=== PATIENT | female | born 1980 | race African-American/Black ===

== ENCOUNTER 2016-05-15 11:02 | Emergency (ER) | payer BC, MEDICAID ==
--- NOTE | 2016-05-15 11:33 | ER Document Report ---
ED General - General Chief Complaint: General Weakness Stated Complaint: HAND/FEET PAIN TRAVEL OUTSIDE OF THE [place] IN LAST 30 DAYS: No - HPI Patient complains to provider of: bilateral hands and feet complaint Notes: Patient states history of hypertension possible borderline diabetes coming in for transient hand pain numbness bilateral foot pain numbness mostly occurs when she wakes up in the morning. Patient states goes away when she starts her day. Patient also states having pain and her buttocks that goes down her leg. Denies any injuriesfevers chills nausea vomiting. Denies changes in medication - Related Data Allergies/Adverse Reactions: No Known Allergies Allergy (Verified 05/15/16 11:17) Past Medical History - Social History Smoking Status: Unknown if Ever Smoked Family History: Reviewed & Not Pertinent Patient has suicidal ideation: No Patient has homicidal ideation: No Renal/ Medical History: Denies: Hx Peritoneal Dialysis - Immunizations Hx Diphtheria, Pertussis, Tetanus Vaccination: Yes - 11/05/13 Review of Systems - Review of Systems Constitutional: No symptoms reported EENT: No symptoms reported Cardiovascular: No symptoms reported Respiratory: No symptoms reported Gastrointestinal: No symptoms reported Genitourinary: No symptoms reported Female Genitourinary: No symptoms reported Musculoskeletal: No symptoms reported Skin: No symptoms reported Hematologic/Lymphatic: No symptoms reported Neurological/Psychological: Numbness Physical Exam - Vital signs Vitals: Temp Pulse Resp BP Pulse Ox 98.4 F 88 16 119/92 H 100 05/15/16 11:19 05/15/16 11:19 05/15/16 11:19 05/15/16 11:19 05/15/16 11:19 Interpretation: Normal - General General appearance: Appears well, Alert - HEENT Head: Normocephalic, Atraumatic Eyes: Normal Pupils: PERRL - Respiratory Respiratory status: No respiratory distress Chest status: Nontender Breath sounds: Normal Chest palpation: Normal - Cardiovascular Rhythm: Regular Heart sounds: Normal auscultation Murmur: No - Abdominal Inspection: Normal Distension: No distension Bowel sounds: Normal Tenderness: Nontender Organomegaly: No organomegaly - Back Back: Normal, Nontender Notes: Palpation of the left gluteus chung in the middle along the piriformis muscle is reproduced patient's pain sensation that goes down her leg. Consistent with sciatica. - Extremities General upper extremity: Normal inspection, Nontender, Normal color, Normal ROM , Normal temperature General lower extremity: Normal inspection, Nontender, Normal color, Normal ROM , Normal temperature, Normal weight bearing. No: Tiara's sign - Neurological Neuro grossly intact: Yes Cognition: Normal Orientation: AAOx4 [place] Coma Scale Eye Opening: Spontaneous [place] Coma Scale Verbal: Oriented [place] Coma Scale Motor: Obeys Commands [place]orge Coma Scale Total: 15 Speech: Normal Cranial nerves: Normal Motor strength normal: LUE, RUE, LLE, RLE Additional motor exam normals: Equal rolled glass crosscutter Sensory: Normal - Psychological Associated symptoms: Normal affect, Normal mood - Skin Skin Temperature: Warm Skin Moisture: Dry Skin Color: Normal Course - Re-evaluation Re-evalutation: 05/15/16 11:33 Patient is on has core thiazide. Will check electrolytes. 05/15/16 13:46 Slight elevation in eosinophils. Explained to the patient she will need to follow-up with her primary care physician for possible testing for autoimmune etiology of her symptoms. Patient also was educated about treatment of sciatica. - Vital Signs Vital signs: Temp Pulse Resp BP Pulse Ox 97.9 F 51 L 18 118/75 100 05/15/16 12:49 05/15/16 12:49 05/15/16 12:49 05/15/16 12:49 05/15/16 12:49 - Laboratory Result Diagrams: 05/15/16 11:35 05/15/16 11:35 Laboratory results interpreted by me: 05/15/16 05/15/16 11:35 11:35 Eosinophils % 6.5 H Chloride 108 H Discharge - Discharge Clinical Impression: Paresthesias Sciatica Qualifiers: Laterality: unspecified laterality Qualified Code(s): M54.30 - Sciatica, unspecified side Condition: Stable Disposition: HOME, SELF-CARE Instructions: Sciatica ([facility]), Numbness or Paresthesia ([facility]), Oral Narcotic Medication ([facility]) Additional Instructions: Your labwork today does not show any electrolyte abnormalities. You do have a slight increase in your eosinophils on your CBC. This may be an indication of possible autoimmune disease. I highly recommend following up with your primary care physician for further testing. At this time do not see any critical etiology for your paresthesias or numbness. Your pain is consistent with sciatica. I would highly recommend looking on the Internet for piriformis muscle stretching exercises to help with your sciatica. He may take the medication prescribed for very severe pain. Tylenol Motrin for her pain. Prescriptions: Tramadol HCl [Ultram 50 mg Tablet] 50 mg PO ASDIR PRN #14 tablet PRN Reason: Forms: Return to Work Referrals: SHAI ANG, [Primary Care Provider] - Follow up as needed
[2016-05-15 12:01] LABS: ABSOLUTE BASOPHILS # (AUTO) 0.1 10^3/uL (0.0-0.2); ABSOLUTE EOSINOPHILS # (AUTO) 0.4 10^3/uL (0.0-0.6); ABSOLUTE LYMPHOCYTES (AUTO) 2.3 10^3/uL (0.5-4.7); ABSOLUTE MONOCYTES (AUTO) 0.5 10^3/uL (0.1-1.4); ABSOLUTE NEUT (AUTO) 2.7 10^3/uL (1.7-8.2); BASOPHILS % (AUTO) 0.9 % (0-2); EOSINOPHILS % (AUTO) 6.5 % (0-6); HEMATOCRIT 41.2 % (36.0-47.0); HEMOGLOBIN 13.7 g/dL (12.0-15.5); HGB HCT DIFFERENCE -0.1; LYMPHOCYTES % (AUTO) 38.5 % (13-45); MEAN CORPUSCULAR HEMOGLOBIN 28.2 pg (27.0-33.4); MEAN CORPUSCULAR HGB CONC 33.3 g/dL (32.0-36.0); MEAN CORPUSCULAR VOLUME 85 fl (80-97); MONOCYTES % (AUTO) 8.5 % (3-13); RED BLOOD COUNT 4.87 10^6/uL (3.72-5.28); RED CELL DISTRIBUTION WIDTH 13.5 % (11.5-14.0); SEGMENTED NEUTROPHILS % (AUTO) 45.6 % (42-78); WHITE BLOOD COUNT 5.9 10^3/uL (4.0-10.5)
[2016-05-15 12:08] LABS: APPEARANCE,URINE CLEAR; BILIRUBIN,URINE NEGATIVE (NEGATIVE); GLUCOSE, URINE NEGATIVE (NEGATIVE); KETONES,URINE NEGATIVE (NEGATIVE); LEUKOCYTE ESTERASE,URINE NEGATIVE (NEGATIVE); NITRITE,URINE NEGATIVE (NEGATIVE); PROTEIN,URINE NEGATIVE (NEGATIVE); URINE SPECIFIC GRAVITY 1.003; UROBILINOGEN,URINE NEGATIVE mg/dL (<2.0)
[2016-05-15 12:10] LABS: ANION GAP 13 (5-19); BLOOD UREA NITROGEN 10 mg/dL (7-20); CALCIUM 9.8 mg/dL (8.4-10.2); CARBON DIOXIDE 24 mmol/L (22-30); CHLORIDE 108 mmol/L (98-107); GLUCOSE 89 mg/dL (75-110); LIPASE 125.2 U/L (23-300); MAGNESIUM 1.9 mg/dL (1.6-2.3); POTASSIUM 4.6 mmol/L (3.6-5.0)
[2016-05-15 12:52] VITALS: BP 118/75
== END 2016-05-15 12:50 | disposition home or self-care (01) ==
LOC: ER 11:02
DX: M54.30 Sciatica, unspecified side (principal); R20.2 Paresthesia of skin; R20.0 Anesthesia of skin; I10 Essential (primary) hypertension; M79.643 Pain in unspecified hand; M79.671 Pain in right foot; M79.672 Pain in left foot; D72.1 Eosinophilia; Z79.899 Other long term (current) drug therapy
CPT/HCPCS: 36415; 80048; 81001; 83036; 83690; 83735; 84702; 85025; 99283

== ENCOUNTER 2016-07-15 13:46 | Emergency (ER) | payer BC ==
--- NOTE | 2016-07-15 14:14 | ER Document Report ---
ED Medical Screen (RME) - General Chief Complaint: Chest Pain Stated Complaint: CHEST PAIN Time Seen by Provider: 07/15/16 14:05 Notes: A 35-year-old female patient complaining of mid sternal chest pain that started yesterday and has been constant. Also feels lightheaded. I have greeted and performed a rapid initial assessment of this patient. A comprehensive ED assessment and evaluation of the patient, analysis of test results and completion of the medical decision making process will be conducted by additional ED providers. TRAVEL OUTSIDE OF THE [place] IN LAST 30 DAYS: No - Related Data Allergies/Adverse Reactions: No Known Allergies Allergy (Verified 07/15/16 13:48) Past Medical History - Social History Chew tobacco use (# tins/day): No Frequency of alcohol use: None Drug Abuse: None - Past Medical History Cardiac Medical History: Reports: Hx Hypertension Renal/ Medical History: Denies: Hx Peritoneal Dialysis GI Medical History: Reports: Hx Gastroesophageal Reflux Disease Surgical Hx: Negative - Immunizations Hx Diphtheria, Pertussis, Tetanus Vaccination: Yes - 11/05/13 Physical Exam - Vital signs Vitals: Temp Pulse Resp BP Pulse Ox 98.1 F 88 16 139/87 H 99 07/15/16 13:48 07/15/16 13:48 07/15/16 13:48 07/15/16 13:48 07/15/16 13:48 Course - Vital Signs Vital signs: Temp Pulse Resp BP Pulse Ox 98.1 F 88 16 139/87 H 99 07/15/16 13:48 07/15/16 13:48 07/15/16 13:48 07/15/16 13:48 07/15/16 13:48
[2016-07-15 14:47] LABS: ABSOLUTE EOSINOPHILS # (AUTO) 0.3 10^3/uL (0.0-0.6); ABSOLUTE LYMPHOCYTES (AUTO) 2.1 10^3/uL (0.5-4.7); ABSOLUTE MONOCYTES (AUTO) 0.7 10^3/uL (0.1-1.4); ABSOLUTE NEUT (AUTO) 5.9 10^3/uL (1.7-8.2); BASOPHILS % (AUTO) 0.5 % (0-2); EOSINOPHILS % (AUTO) 3.6 % (0-6); HEMATOCRIT 43.6 % (36.0-47.0); HEMOGLOBIN 14.7 g/dL (12.0-15.5); HGB HCT DIFFERENCE 0.5; LYMPHOCYTES % (AUTO) 22.8 % (13-45); MEAN CORPUSCULAR HEMOGLOBIN 28.7 pg (27.0-33.4); MEAN CORPUSCULAR HGB CONC 33.7 g/dL (32.0-36.0); MEAN CORPUSCULAR VOLUME 85 fl (80-97); MONOCYTES % (AUTO) 7.4 % (3-13); RED BLOOD COUNT 5.12 10^6/uL (3.72-5.28); SEGMENTED NEUTROPHILS % (AUTO) 65.7 % (42-78)
[2016-07-15 15:15] LABS: ALANINE AMINOTRANSFERASE 27 U/L (9-52); ALBUMIN 4.9 g/dL (3.5-5.0); ALKALINE PHOSPHATASE 66 U/L (38-126); ANION GAP 15 (5-19); ASPARTATE AMINO TRANSFERASE 25 U/L (14-36); BILIRUBIN,DIRECT 0.2 mg/dL (0.0-0.4); BILIRUBIN,TOTAL 0.7 mg/dL (0.2-1.3); BLOOD UREA NITROGEN 13 mg/dL (7-20); CALCIUM 9.9 mg/dL (8.4-10.2); CARBON DIOXIDE 25 mmol/L (22-30); CHLORIDE 101 mmol/L (98-107); CREATINE KINASE 166 U/L (30-135); CREATININE RESULT 0.79 mg/dL (0.52-1.25); GLUCOSE 86 mg/dL (75-110); POTASSIUM 3.7 mmol/L (3.6-5.0); SODIUM 140.6 mmol/L (137-145); TOTAL PROTEIN 8.7 g/dL (6.3-8.2)
--- NOTE | 2016-07-15 15:16 | RADIOLOGY REPORT (SQ) ---
EXAM DESCRIPTION: CHEST PA/LAT COMPLETED DATE/TIME: 07/15/2016 2:46 pm REASON FOR STUDY: Chest pain COMPARISON: 03/26/2014. EXAM PARAMETERS: NUMBER OF VIEWS: two views TECHNIQUE: Digital Frontal and Lateral radiographic views of the chest acquired. RADIATION DOSE: NA LIMITATIONS: none FINDINGS: LUNGS AND PLEURA: No opacities, masses or pneumothorax. No pleural effusion. MEDIASTINUM AND HILAR STRUCTURES: No masses or contour abnormalities. HEART AND VASCULAR STRUCTURES: Heart normal size. No evidence for failure. BONES: No acute findings. HARDWARE: None in the chest. OTHER: No other significant finding. IMPRESSION: NO SIGNIFICANT RADIOGRAPHIC FINDING IN THE CHEST. TECHNICAL DOCUMENTATION: JOB ID: [id number] [employer]- All Rights Reserved
[2016-07-15 15:25] LABS: CREATINE KINASE MB 0.56 ng/mL (<4.55); TROPONIN I < 0.012 ng/mL
--- NOTE | 2016-07-15 16:39 | ER Document Report ---
ED Cardiac - General Mode of Arrival: Ambulatory Information source: Patient TRAVEL OUTSIDE OF THE [place] IN LAST 30 DAYS: No - HPI Patient complains to provider of: Chest pain Associated symptoms: Lightheaded Similar symptoms previously: No Recently seen / treated by doctor: No <JAZZ DU - Last Filed: 07/15/16 17:57> <VICKI FARFAN - Last Filed: 07/15/16 19:10> - General Chief Complaint: Chest Pain Stated Complaint: CHEST PAIN Time Seen by Provider: 07/15/16 14:05 Notes: Patient is a 35 year old female presenting to the emergency department for chest pain. Patient's pain was onset yesterday and has been constant. Patient states her pain is in the top of her sternum. Patient took ASA with some relief. Patient also feels lightheaded and weak like she is going to pass out. Patient denies any nausea or shortness of breath. (JAZZ DU) - Related Data Allergies/Adverse Reactions: No Known Allergies Allergy (Verified 07/15/16 13:48) Past Medical History - General Information source: Patient - Social History Smoking Status: Never Smoker Cigarette use (# per day): No Chew tobacco use (# tins/day): No Frequency of alcohol use: Occasional Drug Abuse: None Family History: None Patient has suicidal ideation: No Patient has homicidal ideation: No - Past Medical History Cardiac Medical History: Reports: Hx Hypertension GI Medical History: Reports: Hx Gastroesophageal Reflux Disease Surgical Hx: Negative - Immunizations Hx Diphtheria, Pertussis, Tetanus Vaccination: Yes - 11/05/13 <JAZZ DU - Last Filed: 07/15/16 17:57> Review of Systems - Review of Systems Constitutional: No symptoms reported EENT: No symptoms reported Cardiovascular: See HPI, Chest pain, Lightheaded Respiratory: No symptoms reported Gastrointestinal: No symptoms reported Genitourinary: No symptoms reported Female Genitourinary: No symptoms reported Musculoskeletal: No symptoms reported Skin: No symptoms reported Hematologic/Lymphatic: No symptoms reported Neurological/Psychological: No symptoms reported -: Yes All other systems reviewed and negative <JAZZ DU - Last Filed: 07/15/16 17:57> Physical Exam <JAZZ DU - Last Filed: 07/15/16 17:57> <VICKI FARFAN - Last Filed: 07/15/16 19:10> - Vital signs Vitals: Temp Pulse Resp BP Pulse Ox 98.1 F 88 16 139/87 H 99 07/15/16 13:48 07/15/16 13:48 07/15/16 13:48 07/15/16 13:48 07/15/16 13:48 - Notes Notes: GENERAL: Alert, interacts well. No acute distress. HEAD: Normocephalic, atraumatic. EYES: Pupils equal, round, and reactive to light. Extraocular movements intact. ENT: Oral mucosa moist, tongue midline. NECK: Full range of motion. Supple. Trachea midline. LUNGS: Clear to auscultation bilaterally, no wheezes, rales, or rhonchi. No respiratory distress. No reproducible chest wall tenderness to palpation. HEART: Regular rate and rhythm. No murmurs, gallops, or rubs. ABDOMEN: Soft, non-tender. Non-distended. Bowel sounds present in all 4 quadrants. EXTREMITIES: Moves all 4 extremities spontaneously. No edema, radial and dorsalis pedis pulses 2/4 bilaterally. No cyanosis. NEUROLOGICAL: Alert and oriented x3. Normal speech. PSYCH: Normal affect, normal mood. SKIN: Warm, dry, normal turgor. No rashes or lesions noted. (JAZZ DU) Course - Laboratory Result Diagrams: 07/15/16 14:28 07/15/16 14:28 <JAZZ DU - Last Filed: 07/15/16 17:57> - Laboratory Result Diagrams: 07/15/16 14:28 07/15/16 14:28 <VICKI FARFAN - Last Filed: 07/15/16 19:10> - Re-evaluation Re-evalutation: 07/15/16 19:08 CBC unremarkable, d-dimer negative, CMP unremarkable, cardiac enzymes negative 2, EKG nonischemic. CXR shows no acute process. No evidence of acute coronary syndrome, patient will be discharged to home. Suspect possible costochondritis however as it is not reproducible I am not certain. Discussed with patient that she should return for any new symptoms. (VICKI FARFAN) - Vital Signs Vital signs: Temp Pulse Resp BP Pulse Ox 98.0 F 70 20 119/78 100 07/15/16 18:52 07/15/16 18:52 07/15/16 18:52 07/15/16 18:52 07/15/16 18:52 - Laboratory Laboratory results interpreted by me: 07/15/16 14:28 Creatine Kinase 166 H Total Protein 8.7 H - EKG Interpretation by Me Additional EKG results interpreted by me: 07/15/16 19:10 EKG shows sinus rhythm rate 77, normal axis, normal intervals, no ST segment elevations or depressions, no T-wave inversions, there is inversions of some of the P waves with left atrial enlargement, slightly slow R-wave progression per my interpretation. Repeat EKG shows sinus rhythm at a rate of 67, continued T-wave inversions, no ST segment elevations or depressions, isolated T-wave inversions in lead III, continued poor R-wave progression per my interpretation. (VICKI FARFAN) Discharge <JAZZ DU - Last Filed: 07/15/16 17:57> <VICKI FARFAN - Last Filed: 07/15/16 19:10> - Discharge Clinical Impression: Chest pain with low risk for cardiac etiology Condition: Stable Disposition: HOME, SELF-CARE Instructions: Chest Pain of Unclear Cause ([facility]) Referrals: SHAI ANG DO [Primary Care Provider] - Follow up in 1 week Scribe Attestation: 07/15/16 19:10 I personally performed the services described in the documentation, reviewed and edited the documentation which was dictated to the scribe in my presence, and it accurately records my words and actions. (VICKI FRAFAN) Scribe Documentation - Scribe Written by Elian:: Elian Bowles, 07/15/16 18:00 acting as scribe for :: Claudia <JAZZ DU - Last Filed: 07/15/16 17:57>
[2016-07-15] MEDS ORDERED: ASPIRIN 325 MG TABLET PO ONE (16:40)
[2016-07-15 18:53] VITALS: BP 119/78
--- NOTE | 2016-07-18 09:46 | EKG REPORT ---
SEVERITY:- BORDERLINE ECG - SINUS RHYTHM PROBABLE LEFT ATRIAL ABNORMALITY : Confirmed by: Sarah Steinberg 18-Jul-2016 09:46:13
--- NOTE | 2016-07-18 09:47 | EKG REPORT ---
SEVERITY:- ABNORMAL ECG - SINUS RHYTHM RUTH, CONSIDER BIATRIAL ABNORMALITIES : Confirmed by: Sarah Steinberg 18-Jul-2016 09:46:21
== END 2016-07-15 18:53 | disposition home or self-care (01) ==
LOC: ER 13:46
DX: R07.9 Chest pain, unspecified (principal); R42 Dizziness and giddiness; R53.1 Weakness
CPT/HCPCS: 36415; 71020; 80053; 82550; 82553; 84484; 84703; 85025; 85379; 93005; 93010; 99285

== ENCOUNTER → 2017-11-13 | Outpatient (CLI) | payer OTHER ==
--- NOTE | 2017-11-13 15:46 | RADIOLOGY REPORT (SQ) ---
EXAM DESCRIPTION: RIBS LEFT W/PA CHEST COMPLETED DATE/TIME: 11/13/2017 3:17 pm REASON FOR STUDY: RIB PAIN OF LEFT SIDE R07.81 PLEURODYNIA COMPARISON: None. TECHNIQUE: Frontal view of the chest and additional views of the left ribs acquired. NUMBER OF VIEWS: Five views LIMITATIONS: None. FINDINGS: FRONTAL CXR: No pneumothorax. No pleural effusion. No atelectasis or infiltrates. RIBS: No displaced rib fractures. No lytic or blastic bony lesions. OTHER: No other significant finding. IMPRESSION: NO PNEUMOTHORAX. NO DISPLACED RIB FRACTURES. COMMENT: SITE OF TRAUMA/COMPLAINT MARKED/STAMP COMPLETED: No TECHNICAL DOCUMENTATION: JOB ID: [id number] [employer]- All Rights Reserved Reading location - IP/workstation name: [email or web address]
== END ==
LOC: OD 14:41
PROVIDERS: ATTEND Family Medicine
DX: R07.81 Pleurodynia (principal)

== ENCOUNTER → 2018-03-16 | Outpatient (CLI) | payer OTHER ==
--- NOTE | 2018-03-16 10:43 | WOMENS IMAGING REPORT ---
EXAM DESCRIPTION: U/S ABDOMEN LIMITED COMPLETED DATE/TIME: 03/16/2018 9:30 am REASON FOR STUDY: R07.81 PLEURODYNIA R07.81 PLEURODYNIA COMPARISON: None. TECHNIQUE: Dynamic and static grayscale images acquired of the abdomen and recorded on PACS. Fayeo liliam selected color Doppler and spectral images recorded. LIMITATIONS: None. FINDINGS: PANCREAS: No masses. Visualized pancreatic duct normal caliber. LIVER: The liver measures 15.5 cm in length, normal size. No masses. Echotexture normal. LIVER VASCULATURE: Normal directional flow of the main portal vein and hepatic veins. GALLBLADDER: No stones. The gallbladder wall measures 2.0 mm, normal wall thickness. No pericholecys tic fluid. ULTRASOUND-DETECTED STEWART'S SIGN: Negative. INTRAHEPATIC DUCTS AND COMMON DUCT: CBD measures 4.1 mm in diameter, normal. The intrahepatic ducts normal caliber. No filling defects. INFERIOR VENA CAVA: Limited visualization due to overlying bowel gas. Normal flow. AORTA: Limited visualization due to overlying bowel gas. The proximal abdominal aorta is patent. T he mid and distal abdominal aorta are obscured by overlying bowel gas. RIGHT KIDNEY: The right kidney measures 10.0 x 4.0 x 5.9 cm, normal size. Normal echogenicity. No so lid or suspicious masses. No hydronephrosis. No calcifications. LEFT KIDNEY: The left kidney measures 11.6 x 6.1 x 4.9 cm, normal size. Normal echogenicity. No so lid or suspicious masses. No hydronephrosis. No calcifications. SPLEEN: The spleen measures 7.1 cm in length. No masses. PERITONEAL AND RIGHT PLEURAL SPACE: No ascites or effusions. OTHER: No other significant findings. IMPRESSION: 1. Limited visualization of the abdominal aorta and inferior vena cava due to overlying bowel gas. 2. Examination is otherwise unremarkable sonographically. TECHNICAL DOCUMENTATION: JOB ID: [id number] [email or web address]- All Rights Reserved Reading location - IP/workstation name: [email or web address]
== END ==
LOC: WI 08:45
PROVIDERS: ATTEND Nurse Practitioner Family
DX: R07.81 Pleurodynia (principal)
CPT/HCPCS: 76705

== ENCOUNTER → 2018-04-23 | Outpatient (CLI) | payer OTHER ==
--- NOTE | 2018-04-23 15:34 | RADIOLOGY REPORT (SQ) ---
EXAM DESCRIPTION: CT SINUSES FOR ENT COMPLETED DATE/TIME: 04/23/2018 9:05 am REASON FOR STUDY: J01.91 ACUTE RECURRENT SINUSITIS, UNSPECIFIED J34.89 OTHER SPECIFIED DISORD J01.91 ACUTE RECURRENT SINUSITIS, UNSPECIFIED J34.89 OTHER SPECIFIED DISORDERS OF NOSE AND NASAL SINUSES J34.1 CYST AND MUCOCELE OF NOSE AND NASAL SINUS COMPARISON: None. TECHNIQUE: Noncontrast scanning through the paranasal sinuses using bone algorithm. Reconstructed MPR images reviewed. All images stored on PACS. Images acquired for image guided surgery. All CT scanners at this facility use dose modulation, iterative reconstruction, and/or weight based d osing when appropriate to reduce radiation dose to as low as reasonably achievable (ALARA). [facility]: Dose Right [facility]: CareDose [facility]: Dose Right [facility]: Teradose 4D [facility]: [email or web address] DBA [employer] RADIATION DOSE: mGy. FINDINGS: The right frontal sinus is hypoplastic. Large latrell bullosa right middle turbinate. Opa cified right infundibulum with chronic mucoperiosteal inflammatory change. Opacified nasofrontal rec esses bilaterally. Mucosal thickening bilateral maxillary sinuses. Fluid in the ethmoid sinuses. M ild leftward deviation of the nasal septum. IMPRESSION: Chronic bah sinusitis. TECHNICAL DOCUMENTATION: JOB ID: [id number] Quality ID # [id number]: Final reports with documentation of one or more dose reduction techniques (e.g., Au tomated exposure control, adjustment of the mA and/or kV according to patient size, use of iterative reconstruction technique) 2010 [employer]- All Rights Reserved Reading location - IP/workstation name: [email or web address]
== END ==
LOC: RAD 13:42
PROVIDERS: ATTEND Otolaryngology
DX: J01.91 Acute recurrent sinusitis, unspecified (principal); J34.89 Other specified disorders of nose and nasal sinuses; J34.1 Cyst and mucocele of nose and nasal sinus; J34.2 Deviated nasal septum
CPT/HCPCS: 70486

== ENCOUNTER 2018-05-28 08:44 | Day surgery (SDC) | payer OTHER ==
--- NOTE | 2018-05-26 21:03 | EKG REPORT ---
SEVERITY:- NORMAL ECG - SINUS RHYTHM : Confirmed by: Geraldine Mason MD 26-May-2018 21:02:50
[~2018-05-28 08:44] MED LIST: BACITRACIN ZINC OINTMENT 15 GM ONE; BALANCED SALT IRRIG SOLN COMB2 15 ML BOTTLE ONE; BUPIVACAINE HCL 0.5%/EPI 1:200000 INJ 1.8 ML CARTRIDGE ONE; CEFAZOLIN 2 GM/D5W RTU 2 GM/50 ML RTUPB IV PRN; FENTANYL CITRATE INJ/PF 100 MCG/2 ML AMPUL ONE; MINERAL OIL (STERILE) 10 ML VIAL ONE; OXYMETAZOLINE HCL 0.05% NASAL SPRAY 15 ML BOTTLE ONE; TOBRAMYCIN SULFATE/DEXAMETH OPH OINTMENT 3.5 GM ONE
[2018-05-28] MEDS ORDERED: ONDANSETRON HCL INJ/PF 4 MG/2 ML SDV ONE (09:04)
[2018-05-28] MEDS ORDERED: FENTANYL CITRATE INJ/PF 100 MCG/2 ML AMPUL ONE ×2 (09:04→09:06)
[2018-05-28] MEDS ORDERED: MIDAZOLAM 2 MG/2 ML INJ ONE (09:04)
[2018-05-28] MEDS ORDERED: DEXAMETHASONE SOD PHOS INJ 10 MG/1 ML VIAL ONE (09:04)
[2018-05-28] MEDS ORDERED: PROPOFOL INJ 200 MG/20 ML VIAL IV ONE (09:04)
[2018-05-28] MEDS ORDERED: CARBOXYMETHYLCELLULOSE SOD 0.5% 0.4 ML DROPERETTE ONE (09:04)
[2018-05-28] MEDS ORDERED: ROCURONIUM BROMIDE INJ 50 MG/5 ML VIAL IV ONE (09:05)
[2018-05-28] MEDS ORDERED: SUCCINYLCHOLINE CHLORIDE INJ 200 MG/10 ML VIAL ONE (09:05)
[2018-05-28] MEDS ORDERED: DEXMEDETOMIDINE INJ 80 MCG/20 ML VIAL IV ONE (09:06)
[2018-05-28] MEDS ORDERED: DIPHENHYDRAMINE HCL 50 MG/ML VIAL ONE (09:06)
[2018-05-28] MEDS ORDERED: BUPIVACAINE HCL 0.5%-EPI 1:200000 INJ/PF 30 ML VIAL ONE (09:21)
[2018-05-28] MEDS ORDERED: GLYCOPYRROLATE INJ 0.4 MG/2 ML VIAL ONE (09:56)
[2018-05-28] MEDS ORDERED: METOPROLOL TARTRATE PF/INJ 5 MG/5 ML SDV IV ONE (10:18)
--- NOTE | 2018-06-04 21:09 | SURGICARE OPERATIVE REPORT E ---
[facility] Operative Report NAME: MARIA TERESA HENDERSON AGE: 37Y DATE OF SURGERY: 05/28/2018 ROOM: PREOPERATIVE DIAGNOSES: 1. ACUTE RECURRENT SINUSITIS. 2. SINONASAL POLYPS. 3. CHRONIC NASAL DYSPNEA. 4. BILATERAL TRINA BULLOSA. 5. BILATERAL CHRONIC EUSTACHIAN TUBE DYSFUNCTION. 6. CHRONIC SINUSITIS. 7. BILATERAL INFERIOR TURBINATE HYPERTROPHY. POSTOPERATIVE DIAGNOSES: 1. ACUTE RECURRENT SINUSITIS. 2. SINONASAL POLYPS. 3. CHRONIC NASAL DYSPNEA. 4. BILATERAL TRINA BULLOSA. 5. BILATERAL CHRONIC EUSTACHIAN TUBE DYSFUNCTION. 6. CHRONIC SINUSITIS. 7. BILATERAL INFERIOR TURBINATE HYPERTROPHY. OPERATION: 1. IMAGE GUIDANCE FUNCTIONAL ENDOSCOPIC SINUS SURGERY WITH BILATERAL TRANSNASAL RIGID SURGICAL ENDOSCOPY FOLLOWS. 2. BILATERAL MAXILLARY ANTROSTOMY WITH TISSUE REMOVAL. 3. BILATERAL TOTAL (ANTERIOR AND POSTERIOR) ETHMOIDECTOMIES WITH TISSUE REMOVAL. 4. BILATERAL IMAGE GUIDANCE FRONTAL SINUS BALLOON SINUPLASTY. 5. BILATERAL IMAGE GUIDANCE SPHENOID BALLOON SINUPLASTY. 6. BILATERAL TRINA BULLOSA REDUCTION. 7. SEPTOPLASTY. 8. BILATERAL INFERIOR TURBINATE REDUCTION USING A SUBMUCOUS RESECTION TECHNIQUE. 9. BILATERAL EUSTACHIAN TUBE BALLOON PLASTY VIA BILATERAL RIGID TRANSNASAL SURGICAL ENDOSCOPY. SURGEON: TALHA ALANIS D.O. ANESTHESIA STAFF: ELVA Santana ESTIMATED BLOOD LOSS: 75 mL FLUIDS: 1400 mL COMPLICATIONS: None. DRAINS: None. SPONGE COUNT: Verified. NEEDLE COUNT: Verified. MATERIALS FORWARDED SPECIMEN: 1. Right maxillary sinus tissue rule out polyp disease/polyps. 2. Right ethmoid sinus tissue rule out polyp disease/polyps. FINDINGS: 1. Left nasal septal deviation involving bone and cartilage along with a maxillary crest spur/septal spur. 2. Right greater than left sinonasal polyp disease/polyps. 3. Right much greater than left trina bullosa. 4. Significant bilateral inferior turbinate hypertrophy with a very prominent inferior turbinate bony component bilaterally. 5. Nasopharynx was unremarkable except for Demi hypertrophy and flattening/compression. INDICATIONS: This is a 37-year-old -[place] female who was seen and evaluated in the [facility] office as a second opinion, as the patient had previously undergone sinus and nasal treatment at another ENT practice and she was not satisfied with the results. After extensive discussion with the patient and clinic flexible endoscopy and CT sinus imaging was obtained, the recommendation and plan was made for definitive management of the patient's sinonasal disease/pathology/chronic and acute recurrent symptoms in the main operating room with sinonasal surgery in the form of septoplasty, turbinate reductions inferior and middle, and image guidance sinus surgery and eustachian tube balloon plasty, all of which she voiced an understanding of and was in agreement with. The procedures and all of their risks and complications were all discussed in detail with the patient, which she voiced an understanding of and consent was obtained. PROCEDURE: The patient was taken to the main operating room and was placed on the operating room table in the supine position. Appropriate monitors were placed. Using mask and IV access, general anesthesia was obtained. The patient was transorally intubated without difficulty. The patient was positioned and prepped for sinus and nasal surgery. The patient underwent a nasal examination with injection of local anesthetic with epinephrine to establish a nasal block. There were 2 Afrin-soaked neuro patties placed per nasal passage. The patient was then prepped and draped in the usual fashion for sinus and nasal surgery. The image guidance sinus surgery system was set up and tested appropriately before beginning the case. The neuro patties were removed and the patient underwent a hemitransfixion incision with elevation of the mesoperichondrial and mucoperiosteal flaps without difficulty. The bony cartilaginous junction was identified and divided, and the most deviated portion of the septal cartilage and bone were removed. The maxillary crests/septal spurs were removed without difficulty using a chisel. There was a greater than 1.5 cm and 1.5 cm cartilaginous strut that was preserved. At this point, the turbinate bipolar wand was used to make 2 passes in each inferior turbinate. Next, a freer elevator was used to outfracture each inferior turbinate and there was a very prominent bony component noted on each side. At this point, the anterior portion of the inferior turbinates were entered with a pair of Erasmo scissors followed by elevation of the mucosal lining. At this point, a turbinate microdebrider system at a setting of 1500 RPM was used to perform submucous resection on each side. A pair of Takahashis was used to debulk the anterior portion of prominent turbinate bone without difficulty. Once complete, the excess/redundant mucosa was trimmed and the margins were reapproximated with chromic suture. At this point, the image guidance functional endoscopic sinus surgery and bilateral eustachian tube balloon plasty, all of which was done under the guidance of bilateral transnasal rigid surgical endoscopy, was performed in the following fashion. The sinus surgery portion of the procedure was also performed with the utilization of sinus surgical instrumentation to include the microdebrider system at a setting of 3000 RPM. At this point, the eustachian tube balloon plasty system was inserted and set in place in each eustachian tube complex and inflated to 2 minutes per side at 12 atmospheres. Once complete, the balloon system was withdrawn. Next, bilateral trina bullosa reductions were performed right greater than left. The frontal sinus image guidance balloon system was next introduced and the balloon was inflated in 2-3 positions per side to 12 atmospheres. At this point, the sphenoid balloon was utilized to perform bilateral sphenoid image guidance balloon sinuplasty inflating the balloon in 2 positions to 12 atmospheres each time. At this point, the bilateral maxillary antrostomies were performed with tissue removed on the right side for pathology evaluation. This was followed by performing the bilateral total (anterior and posterior) ethmoidectomies with tissue removed on the right for pathology evaluation. Once complete, the sinonasal distributions were again thoroughly irrigated and suctioned, and there was adequate hemostasis noted. There was a modified Merocel pack that was placed, 1 per side, and these were secured at the caudal aspect with 4-0 Prolene suture. The hemitransfixion incision was reapproximated with chromic suture. At this point, the patient was returned to the anesthesia staff and was allowed to emerge from general anesthesia. The patient was extubated in the main operating room and was then transported to the post anesthesia recovery unit in stable condition. There were no complications. DICTATING PHYSICIAN: TALHA ALANIS D.O. [id number] PHY#: [id number] ID: [id number] JOB#: [id number] ACCT: [id number] cc:TALHA ALANIS D.O. >
== END 2018-05-28 15:24 | disposition home or self-care (01) ==
LOC: SC 08:44
PROVIDERS: ATTEND Otolaryngology
DX: J32.9 Chronic sinusitis, unspecified (principal); J33.9 Nasal polyp, unspecified; J34.89 Other specified disorders of nose and nasal sinuses; H69.83 Other specified disorders of Eustachian tube, bilateral; J34.2 Deviated nasal septum; R09.81 Nasal congestion; R51 Headache; R06.09 Other forms of dyspnea; J34.1 Cyst and mucocele of nose and nasal sinus; J34.3 Hypertrophy of nasal turbinates
CPT/HCPCS: 93005; 88305 ×2; 93010; 31256; 31255; 31240; 30520; 30140; 31298; 69799; J2250; J3490 ×9; J1200; J3010; J0330; J2405; J2704; J1100; J0690; 160

== ENCOUNTER 2019-04-23 20:00 | Emergency (ER) | payer OTHER ==
[2019-04-23 20:11] VITALS: BP 119/80
== END 2019-04-23 21:05 | disposition left against medical advice (07) ==
LOC: ER 20:00
DX: Z53.21 Procedure and treatment not carried out due to patient leaving prior to being seen by health care provider (principal)

== ENCOUNTER → 2019-06-12 | Outpatient (CLI) | payer OTHER | LOC: OD 13:24 | PROVIDERS: ATTEND Allergy & Immunology | DX: J33.9 Nasal polyp, unspecified (principal) ==

== ENCOUNTER → 2019-06-20 | Outpatient (CLI) | payer OTHER ==
--- NOTE | 2019-06-20 18:09 | RADIOLOGY REPORT (SQ) ---
EXAM DESCRIPTION: CT FACIAL AREA WITHOUT IMAGES COMPLETED DATE/TIME: 06/20/2019 1:11 pm REASON FOR STUDY: J33.9 NASAL POLYP, UNSPECIFIED J33.9 NASAL POLYP, UNSPECIFIED COMPARISON: None. TECHNIQUE: Noncontrasted images through the facial bones and orbits windowed for bone and soft tissu e. Additional coronal and sagittal reconstructed images reviewed. All images stored on PACS. All CT scanners at this facility use dose modulation, iterative reconstruction, and/or weight based d osing when appropriate to reduce radiation dose to as low as reasonably achievable (ALARA). [facility]: Dose Right [facility]: CareDose [facility]: Dose Right [facility]: Teradose 4D [facility]: Smart curated.by RADIATION DOSE: Total exam DLP: 1141.10 mGy. LIMITATIONS: None. FINDINGS: FACIAL BONES: No fracture or bone lesion. ORBITS: Intact. No fracture. Symmetric intact globes and retroorbital soft tissues. PARANASAL SINUSES: Prior bilateral nasal sinus surgery. The right antrectomy window is clear. Slig ht to very mild soft tissue density in the left antrectomy window may represent inflammatory changes. Slight to mild mucosal thickening in the sphenoid, ethmoid and maxillary sinuses more so on the left. No fluid levels. Lobulated appearance to the left inferior turbinate may represent hypertrophic changes. Slight soft tissue density within the nasal cavity may be on an inflammatory basis. SOFT TISSUES: No mass or edema. INFERIOR BRAIN: Limited view. No acute findings. OTHER: No other significant finding. IMPRESSION: 1. Prior bilateral nasal sinus surgery. The right antrectomy window is clear. Slight to very mild soft tissue density in the left antrectomy window, may represent inflammatory changes. 2. Chronic mild maxillary, ethmoid and sphenoid sinus disease. 3. Lobulated appearance to the left inferior turbinate, may represent hypertrophic changes. TECHNICAL DOCUMENTATION: JOB ID: [id number] Quality ID # [id number]: Final reports with documentation of one or more dose reduction techniques (e.g., Au tomated exposure control, adjustment of the mA and/or kV according to patient size, use of iterative reconstruction technique) 2010 [employer]- All Rights Reserved Reading location - IP/workstation name: [email or web address] [id number]
== END ==
LOC: RAD 12:54
PROVIDERS: ATTEND Allergy & Immunology
DX: J33.9 Nasal polyp, unspecified (principal); J32.8 Other chronic sinusitis
CPT/HCPCS: 70486

== ENCOUNTER → 2019-10-30 | Outpatient (CLI) | payer OTHER ==
--- NOTE | 2019-10-30 14:35 | RADIOLOGY REPORT (SQ) ---
EXAM DESCRIPTION: KNEE RIGHT 3 VIEWS IMAGES COMPLETED DATE/TIME: 10/30/2019 2:27 pm REASON FOR STUDY: PAIN IN RIGHT KNEE M25.561 PAIN IN RIGHT KNEE COMPARISON: None. NUMBER OF VIEWS: Three views. TECHNIQUE: AP, lateral, both oblique, and sunrise patella radiographic images acquired of the right knee. LIMITATIONS: None. FINDINGS: MINERALIZATION: Normal. BONES: No acute fracture or dislocation. No worrisome bone lesions. No significant osteophytes. JOINT: No effusion. No chondrocalcinosis. OTHER: No other significant finding. IMPRESSION: NEGATIVE STUDY OF THE RIGHT KNEE. NO EXPLANATION FOR PAIN. TECHNICAL DOCUMENTATION: JOB ID: [id number] 2010 [employer]- All Rights Reserved Reading location - IP/workstation name: [email or web address]
== END ==
LOC: OD 14:02
PROVIDERS: ATTEND Nurse Practitioner Family
DX: M25.561 Pain in right knee (principal)